=== PATIENT | female | born 1940 | race Asian ===

== ENCOUNTER 2017-04-24 11:54 | Emergency (ER) | payer MEDICARE, MEDICAID ==
[~2017-04-24] VITALS: Ht 152.4 cm; Wt 65.0 kg
[2017-04-24] MEDS ORDERED: IBUPROFEN 600MG TABLET PO ONE (12:30)
[2017-04-24 15:02] VITALS: BP 142/84
== END 2017-04-24 15:05 | disposition home or self-care (01) ==
LOC: ER 12:09
DX: S52.592A Other fractures of lower end of left radius, initial encounter for closed fracture (principal); S52.692A Other fracture of lower end of left ulna, initial encounter for closed fracture; S30.0XXA Contusion of lower back and pelvis, initial encounter; W18.39XA Other fall on same level, initial encounter; Y93.89 Activity, other specified; Y92.89 Other specified places as the place of occurrence of the external cause; M85.80 Other specified disorders of bone density and structure, unspecified site
CPT/HCPCS: 29125; 72100; 73110; 99284; A4565